=== PATIENT | female | born 1975 | race Caucasian/White ===

== ENCOUNTER 2019-05-19 09:21 | Emergency (ER) | payer BC ==
[2019-05-19] MEDS ORDERED: Tetracaine HCl/PF 0.5% 4 ML Bottle EYEBOTH ONE (09:59)
[2019-05-19] MEDS ORDERED: Erythromycin Base 0.5% Ophth Oint 1 GM Tube EYEBOTH ONE (10:08)
--- NOTE | 2019-05-19 10:12 | EDM.PDOC ---
ED HPI GENERAL MEDICAL PROBLEM - General Chief Complaint: Eye Problems Stated Complaint: RIGHT EYE Time Seen by Provider: 05/19/19 09:57 Source of Information: Reports: Patient History Limitations: Reports: No Limitations - History of Present Illness INITIAL COMMENTS - FREE TEXT/NARRATIVE: HISTORY AND PHYSICAL: History of present illness: Patient is a 44-year-old female who presents to the emergency room today with complaints of right eye irritation which started yesterday. She states yesterday morning she had put her contacts in and had gone to work. She had noticed some irritation of the right eye but was unable to take her contacts out and she did not have her glasses with her. She states that she got home from work she threw her daily contacts away and was wearing her glasses and felt somewhat of an improvement. She went to bed with her glasses on and had a sock taped up against her eyes so she could sleep with a closed. When she woke up this morning she states her eye. Red and was more irritated with watery drainage. She denies any exposures, trauma or injuries. Patient denies any fever, chills, headache, change in vision, syncope or near syncope. Denies any chest pain, back pain, shortness of breath or cough. Denies any abdominal pain, nausea, vomiting, diarrhea, constipation or dysuria. Has not noted any blood in urine or stool. Patient has been eating and drinking appropriately. Review of systems: As per history of present illness and below otherwise all systems reviewed and negative. Past medical history: As per history of present illness and as reviewed below otherwise noncontributory. Surgical history: As per history of present illness and as reviewed below otherwise noncontributory. Social history: See social history for further information Family history: As per history of present illness and as reviewed below otherwise noncontributory. Physical exam: General: Well-developed and well-nourished 44-year-old female. Alert and oriented. Nontoxic appearing and in no acute distress. HEENT: Atraumatic, normocephalic, pupils equal and reactive bilaterally, negative for conjunctival pallor or scleral icterus, scleral injection noted to the right, mucous membranes moist, TMs normal bilaterally, throat clear, neck supple, nontender, trachea midline. No drooling or trismus noted. No meningeal signs. No hot potato voice noted. Lungs: Clear to auscultation, breath sounds equal bilaterally, chest nontender. Heart: S1S2, regular rate and rhythm without overt murmur Abdomen: Soft, nondistended, nontender. Skin: Intact, warm, dry. No lesions or rashes noted. Extremities: Atraumatic, moves all extremities per self without difficulty or deficits, negative for cords or calf pain. Neurovascular unremarkable. Neuro: Awake, alert, oriented. Cranial nerves II through XII unremarkable. Cerebellum unremarkable. Motor and sensory unremarkable throughout. Exam nonfocal. Notes: Fluorescein eye exam was completed and there is noted a corneal abrasion to the 3 o'clock position. No foreign body is noted. Erythromycin ointment was demonstrated here. We discussed the need to follow up with ophthalmology or return if her symptoms do not improve/worsen. Supportive care measures were reviewed and discussed. Voices understanding and is agreeable to plan of care. Denies any further questions or concerns at this time. Diagnostics: Visual acuity, fluorescein eye exam Therapeutics: Tetracaine, erythromycin Prescription: Erythromycin ointment Impression: Corneal Abrasion, right Plan: 1. Erythromycin ointment: Apply 1 cm ribbon in the eye 4 times daily over the next 5-7 days. 2. Avoid using your contacts until you're irritation has stopped. 3. Follow-up with ophthalmology as we discussed. Return to the ED as needed and as discussed. Definitive disposition and diagnosis as appropriate pending reevaluation and review of above. R eye Pain Score (Numeric/FACES): 6 ED ROS GENERAL - Review of Systems Review Of Systems: ROS reveals no pertinent complaints other than HPI. ED EXAM GENERAL W FULL EYE - Physical Exam Exam: See Below (See dictation) Course - Vital Signs Last Recorded V/S: Last Vital Signs Temp 96.6 F 05/19/19 09:32 Pulse 83 05/19/19 09:32 Resp 20 05/19/19 09:32 BP 156/100 H 05/19/19 09:32 Pulse Ox 99 05/19/19 09:32 - Orders/Labs/Meds Meds: Medications Discontinued Medications Generic Name Dose Route Start Last Admin Trade Name Freq PRN Reason Stop Dose Admin Erythromycin 1 gm 05/19/19 10:08 Erythromycin 0.5% Ophth Oint EYEBOTH 05/19/19 10:09 ONETIME ONE Tetracaine HCl 1 ml 05/19/19 09:59 05/19/19 10:03 Tetracaine 0.5% Steri-Unit Kaylee EYEBOTH 05/19/19 10:00 1 dose ASDIRECTED ONE Administration Departure - Departure Time of Disposition: 10:11 Disposition: Home, Self-Care 01 Clinical Impression: Corneal abrasion Qualifiers: Encounter type: initial encounter Laterality: right Qualified Code(s): S05.01XA - Injury of conjunctiva and corneal abrasion without foreign body, right eye, initial encounter - Discharge Information Instructions: Corneal Abrasion, [id number] Referrals: PCP,None [Primary Care Provider] - Forms: ED Department Discharge Additional Instructions: The following information is given to patients seen in the emergency department who are being discharged to home. This information is to outline your options for follow-up care. We provide all patients seen in our emergency department with a follow-up referral. The need for follow-up, as well as the timing and circumstances, are variable depending upon the specifics of your emergency department visit. If you don't have a primary care physician on staff, we will provide you with a referral. We always advise you to contact your personal physician following an emergency department visit to inform them of the circumstance of the visit and for follow-up with them and/or the need for any referrals to a consulting specialist. The emergency department will also refer you to a specialist when appropriate. This referral assures that you have the opportunity for follow-up care with a specialist. All of these measure are taken in an effort to provide you with optimal care, which includes your follow-up. Under all circumstances we always encourage you to contact your private physician who remains a resource for coordinating your care. When calling for follow-up care, please make the office aware that this follow-up is from your recent emergency room visit. If for any reason you are refused follow-up, please contact the [facility] Emergency Department at and asked to speak to the emergency department charge nurse. [facility] [address] [place] [id number] [id number] 1. Erythromycin ointment: Apply 1 cm ribbon in the eye 4 times daily over the next 5-7 days. 2. Avoid using your contacts until you're irritation has stopped. 3. Follow-up with ophthalmology as we discussed. Return to the ED as needed and as discussed.
== END 2019-05-19 10:20 | disposition home or self-care (01) ==
LOC: MW.ED 09:21
DX: S05.01XA Injury of conjunctiva and corneal abrasion without foreign body, right eye, initial encounter (principal); X58.XXXA Exposure to other specified factors, initial encounter
CPT/HCPCS: 99283; A9270; 99282

== ENCOUNTER 2022-02-18 07:24 | Day surgery (SDC) | payer OTHER ==
[~2022-02-18 07:24] MED LIST: Lactated Ringers 1,000 ML IV SCH; Sodium Chloride 0.9% 10 ML Syringe FLUSH PRN; Sodium Chloride 0.9% 2.5 ML Syringe FLUSH PRN; Sodium Chloride 0.9% 20 ML SDV IV PRN
[2022-02-18] MEDS ORDERED: Lidocaine 2% 5 ML SDV ONE (07:43)
[2022-02-18] MEDS ORDERED: fentaNYL 100 MCG/2 ML SDV ONE (07:43)
[2022-02-18] MEDS ORDERED: Propofol 200 MG/20 ML SDV ONE (07:43)
== END 2022-02-18 09:55 | disposition home or self-care (01) ==
LOC: MW.SDS 07:24
PROVIDERS: ATTEND Surgery
DX: Z12.11 Encounter for screening for malignant neoplasm of colon (principal); D12.3 Benign neoplasm of transverse colon; D12.4 Benign neoplasm of descending colon; F17.220 Nicotine dependence, chewing tobacco, uncomplicated; Z79.899 Other long term (current) drug therapy
CPT/HCPCS: 45380; J2704; J3010; J7120; 00812